=== PATIENT | female | born 1940 | race Caucasian/White ===

== ENCOUNTER 2017-10-08 08:26 | Inpatient (IN) | payer OTHER ==
[2017-10-08] VITALS (7 sets, daily range): BP systolic 131–153; BP diastolic 54–93
[~2017-10-08] VITALS: Ht 165.1 cm; Wt 48.9 kg
[~2017-10-08 08:26] MED LIST: CARAFATE 1 GM TA1 G1 PO; FEMARA2.5 MG PO; LEVOTHYROXINE 0.1 MG PO; MS CONTIN15 MG PO; PROZAC20 MG PO; SIMVASTATIN40 MG PO
[2017-10-08] MEDS ORDERED: FENTANYL PATCH75 MCG TRANSDERM (08:34)
[2017-10-08] MEDS ORDERED: SYNTHROID25 MC1 PER TUBE (08:35)
[2017-10-08] MEDS ORDERED: METFORMIN HCL500 MG PER TUBE (08:36)
[2017-10-08] MEDS ORDERED: ALPRAZOLAM0.25 MG PER TUBE (08:38)
[2017-10-08] MEDS ORDERED: AMOXICILLIN 50500 MG PER TUBE (08:39)
[2017-10-08] MEDS ORDERED: NORCO 10-325 T1 EACH PER TUBE (08:42)
[2017-10-08] MEDS ORDERED: CELEXA40 MG PER TUBE (08:43)
[2017-10-08 08:53] LABS: HEMOGLOBIN 10.4 gm/dL (12.0-15.0); MCH 28.1 pg (26.0-34.0); MCHC 33.6 g/dL (28.0-37.0); MCV 83.5 fL (80.0-100.0); PLATELET COUNT 580 thou/uL (150-400); RBC 3.71 mil/uL (4.20-5.00); RDW 14.8 % (10.5-14.5); WBC 16.2 thou/uL (4.0-11.0)
[2017-10-08 09:01] LABS: ANION GAP 6 mmol/L (7-16); BUN 22 mg/dL (7-18); CALCIUM 9.8 mg/dL (8.5-10.1); CHLORIDE 89 mmol/L (98-107); CO2 31 mmol/L (21-32); CREATININE 0.6 mg/dL (0.6-1.0); GLUCOSE 134 mg/dL (74-106); POTASSIUM 3.7 mmol/L (3.5-5.1); SODIUM 126 mmol/L (136-145)
[2017-10-08 09:07] LABS: ALBUMIN 3.2 g/dL (3.4-5.0); DIRECT BILIRUBIN < 0.1 mg/dL (<0.1-0.3); SALICYLATE < 2.8 mg/dL (2.8-20.0); SGOT 18 U/L (15-37); SGPT 25 U/L (30-65); TOTAL BILIRUBIN 0.2 mg/dL (<0.1-1.0); TOTAL PROTEIN 8.1 g/dL (6.4-8.2)
[2017-10-08 09:48] LABS: ABSOLUTE NEUTROPHILS 13.9 thou/uL (1.4-8.2)
[2017-10-08 10:38] LABS: URINE BILIRUBIN NEGATIVE (Negative); URINE BLOOD NEGATIVE (Negative); URINE CLARITY CLEAR; URINE COLOR YELLOW; URINE GLUCOSE-RANDOM* NEGATIVE (Negative); URINE KETONES NEGATIVE (Negative); URINE LEUKOCYTES NEGATIVE (Negative); URINE NITRITE NEGATIVE (Negative); URINE PROTEIN (DIPSTICK) NEGATIVE (Negative); URINE SPECIFIC GRAVITY 1.015 (1.005-1.035); URINE UROBILINOGEN 0.2 E.U./dl (0.2-1.0)
[2017-10-08 10:39] LABS: URINE CREATININE-RANDOM* 19.7 mg/dL
[2017-10-09 03:41] VITALS: BP 163/69
[2017-10-09 05:30] LABS: HEMATOCRIT 27.3 % (37.0-47.0); HEMOGLOBIN 9.1 gm/dL (12.0-15.0); MCHC 33.6 g/dL (28.0-37.0); MCV 83.3 fL (80.0-100.0); RBC 3.27 mil/uL (4.20-5.00); RDW 14.6 % (10.5-14.5); WBC 11.5 thou/uL (4.0-11.0)
[2017-10-09 05:37] LABS: CREATININE 0.6 mg/dL (0.6-1.0); POTASSIUM 4.3 mmol/L (3.5-5.1)
[2017-10-09 08:00] VITALS: BP 129/55
[2017-10-09 16:00] VITALS: BP 153/68
[2017-10-09 19:50] VITALS: BP 129/63
[2017-10-10 02:54] VITALS: BP 144/69
[2017-10-10 05:58] LABS: HEMATOCRIT 26.3 % (37.0-47.0); HEMOGLOBIN 8.8 gm/dL (12.0-15.0); MCH 28.1 pg (26.0-34.0); MCHC 33.4 g/dL (28.0-37.0); MCV 84.2 fL (80.0-100.0); RBC 3.13 mil/uL (4.20-5.00); RDW 14.3 % (10.5-14.5); WBC 11.1 thou/uL (4.0-11.0)
[2017-10-10 06:13] LABS: CALCIUM 8.6 mg/dL (8.5-10.1); CREATININE 0.6 mg/dL (0.6-1.0); POTASSIUM 4.5 mmol/L (3.5-5.1)
[2017-10-10 07:58] VITALS: BP 155/48
[2017-10-10 11:44] VITALS: BP 155/48
[2017-10-10] MEDS ORDERED: AUGMENTIN 875-1 EACH PO (13:45)
[2017-10-10 14:10] VITALS: BP 155/48
== END 2017-10-10 14:38 | disposition home or self-care (01) | DRG 91 ==
LOC: ER 08:26 → EROBS 09:22 → 4E 09:22 → ENTRNSPT 10-10 14:28 → EDTRNSPTSTS 10-10 14:31 → 4E 10-10 14:38
PROVIDERS: Emergency Medicine; Hospitalist
DX: G92 Toxic encephalopathy (principal); E43 Unspecified severe protein-calorie malnutrition; E87.1 Hypo-osmolality and hyponatremia; Z68.1 Body mass index [BMI] 19.9 or less, adult; J02.0 Streptococcal pharyngitis; D64.9 Anemia, unspecified; D72.829 Elevated white blood cell count, unspecified; E03.9 Hypothyroidism, unspecified; E78.5 Hyperlipidemia, unspecified; E11.9 Type 2 diabetes mellitus without complications; Z98.41 Cataract extraction status, right eye; Z90.12 Acquired absence of left breast and nipple; Z88.6 Allergy status to analgesic agent; Z79.899 Other long term (current) drug therapy
CPT/HCPCS: 10183

== ENCOUNTER 2017-10-29 07:36 | Inpatient (IN) | payer OTHER ==
[~2017-10-29] VITALS: Ht 165.1 cm; Wt 44.9 kg
--- NOTE | ~2017-10-29 | EKG ---
[place] [address] [facility] [employer] [place] [address] ELECTROCARDIOGRAM REPORT Name: SHAYNA NAVARRO [facility] [id number] Admission: 10/29/17 Attend Phys: Discharge: Date of : 44 Report #: [id number] THIS REPORT FOR: //name// [facility] ED Test Date: 2017-10-29 Test Time: 08:24:43 Pat Name: SHAYNA NAVARRO Department: Room: Gender: F [employer]: [facility] : 1940 Requested By: Aranza Munoz Order Number: [id number] MD: Oimd Pulliam Measurements Intervals [place] Rate: 86 P: 41 MA: 141 QRS: 59 QRSD: 74 T: 58 QT: 346 QTc: 414 Interpretive Statements Sinus rhythm Atrial premature complexes No previous ECG available for comparison Electronically Signed On 10-29-2017 8:41:54 CDT by Omid Pulliam [email or web address] <ELECTRONICALLY SIGNED> By: Omid Pulliam MD, [facility] 10/29/17 0841 0824 08 Omid Pulliam MD, FAC /EPI
[~2017-10-29 07:36] MED LIST changes: +ALPRAZOLAM0.25 MG PER TUBE; +AMOXICILLIN 50500 MG PER TUBE; +AUGMENTIN 875-1 EACH PO; +CELEXA40 MG PER TUBE; +FENTANYL PATCH75 MCG TRANSDERM; +METFORMIN HCL500 MG PER TUBE; +NORCO 10-325 T1 EACH PER TUBE; +SYNTHROID25 MC1 PER TUBE
[2017-10-29 07:43] VITALS: BP 137/50
[2017-10-29] MEDS ORDERED: ONDANSETRON ODT4 MG PO (07:55)
[2017-10-29 08:22] LABS: BASOPHILS 0.3 % (0.0-2.0); EOSINOPHILS 0.1 % (0.0-3.0); HEMATOCRIT 29.2 % (37.0-47.0); HEMOGLOBIN 9.5 gm/dL (12.0-15.0); LYMPHOCYTES 1.1 % (24.0-44.0); MCH 26.7 pg (26.0-34.0); MCHC 32.4 g/dL (28.0-37.0); MCV 82.4 fL (80.0-100.0); MONOCYTES 2.9 % (1.0-8.0); PLATELET COUNT 582 thou/uL (150-400); POLYS 95.6 % (36.0-66.0); RBC 3.55 mil/uL (4.20-5.00); WBC 18.8 thou/uL (4.0-11.0)
[2017-10-29 08:29] LABS: CALCIUM 9.9 mg/dL (8.5-10.1); CREATININE 0.6 mg/dL (0.6-1.0); POTASSIUM 4.5 mmol/L (3.5-5.1)
[2017-10-29 08:34] LABS: BE(vivo) 5.6 mmol/L (-2 to +3); HCO3 30.3 mmol/L (22.0-26.0); PCO2 45.6 mmHg (35.0-45.0); PO2 184.9 mmHg (80.0-100.0); pH 7.441 (7.360-7.450); sO2 99.3 % (92.0-98.0)
[2017-10-29 12:45] VITALS: BP 150/68
[2017-10-29 13:00] VITALS: BP 173/87
[2017-10-29 20:00] VITALS: BP 147/57
[2017-10-29 20:32] VITALS: BP 119/54
[2017-10-30 05:20] VITALS: BP 141/62
[2017-10-30 05:50] LABS: BASOPHILS 0.1 % (0.0-2.0); HEMATOCRIT 27.2 % (37.0-47.0); HEMOGLOBIN 8.8 gm/dL (12.0-15.0); LYMPHOCYTES 0.7 % (24.0-44.0); MCH 26.9 pg (26.0-34.0); MCHC 32.2 g/dL (28.0-37.0); MCV 83.6 fL (80.0-100.0); MONOCYTES 4.1 % (1.0-8.0); PLATELET COUNT 579 thou/uL (150-400); POLYS 95.1 % (36.0-66.0); RBC 3.25 mil/uL (4.20-5.00); RDW 14.9 % (10.5-14.5)
[2017-10-30 05:50] LABS: BE(vivo) 1.5 mmol/L (-2 to +3); HCO3 25.7 mmol/L (22.0-26.0); PCO2 38.6 mmHg (35.0-45.0); PO2 148.3 mmHg (80.0-100.0); pH 7.441 (7.360-7.450)
[2017-10-30 07:20] VITALS: BP 149/56
[2017-10-30 21:20] VITALS: BP 146/74
[2017-10-31 04:32] VITALS: BP 136/68
[2017-10-31 07:45] VITALS: BP 140/60
[2017-10-31 21:08] VITALS: BP 134/59
[2017-11-01 04:10] VITALS: BP 153/69
[2017-11-01 06:20] LABS: HEMATOCRIT 28.3 % (37.0-47.0); HEMOGLOBIN 9.1 gm/dL (12.0-15.0); MCH 26.6 pg (26.0-34.0); MCHC 32.2 g/dL (28.0-37.0); MCV 82.6 fL (80.0-100.0); RBC 3.42 mil/uL (4.20-5.00); WBC 21.9 thou/uL (4.0-11.0)
[2017-11-01 08:57] VITALS: BP 146/75
[2017-11-01 14:15] VITALS: BP 146/75
[2017-11-01 14:26] VITALS: BP 146/75
[2017-11-01 16:10] VITALS: BP 168/81
[2017-11-01 19:22] VITALS: BP 181/94
[2017-11-02 04:45] VITALS: BP 198/112
[2017-11-02 05:46] LABS: HEMATOCRIT 27.5 % (37.0-47.0); HEMOGLOBIN 8.8 gm/dL (12.0-15.0); MCH 26.6 pg (26.0-34.0); RBC 3.32 mil/uL (4.20-5.00); RDW 15.2 % (10.5-14.5); WBC 17.6 thou/uL (4.0-11.0)
[2017-11-02 05:53] LABS: CALCIUM 9.2 mg/dL (8.5-10.1); CREATININE 0.7 mg/dL (0.6-1.0)
[2017-11-02 07:40] VITALS: BP 180/96
[2017-11-02] MEDS ORDERED: CEFUROXIME250 MG PO (09:13)
[2017-11-02 11:04] VITALS: BP 146/75
== END 2017-11-02 11:56 | disposition home health service (06) | DRG 177 ==
LOC: ER 07:36 → EROBS 09:28 → 4E 09:28
PROVIDERS: Hospitalist; Nurse Practitioner Acute Care; Nurse Practitioner Family; Student in an Organized Health Care Education/Training Program
PROC: 0D20X0Z Change Drainage Device in Upper Intestinal Tract, External Approach (ICD-10-PCS; principal; 2017-11-01)
DX: J69.0 Pneumonitis due to inhalation of food and vomit (principal); E43 Unspecified severe protein-calorie malnutrition; J96.01 Acute respiratory failure with hypoxia; E87.1 Hypo-osmolality and hyponatremia; Z68.1 Body mass index [BMI] 19.9 or less, adult; R13.10 Dysphagia, unspecified; K20.9 Esophagitis, unspecified; Z66 Do not resuscitate; Z60.2 Problems related to living alone; F41.9 Anxiety disorder, unspecified; Z92.21 Personal history of antineoplastic chemotherapy; Z79.899 Other long term (current) drug therapy; Z98.41 Cataract extraction status, right eye; Z85.810 Personal history of malignant neoplasm of tongue; Z88.6 Allergy status to analgesic agent; Z90.12 Acquired absence of left breast and nipple
CPT/HCPCS: 10183